=== PATIENT | male | born 1935 | race Caucasian/White ===

== ENCOUNTER 2022-04-04 13:30 | Inpatient (IN) | payer MEDICARE ==
[~2022-04-04] VITALS: Ht 177.8 cm; Wt 94.8 kg
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
[2022-04-04] MEDS ORDERED: METO50TA16 PO (13:57)
[2022-04-04] MEDS ORDERED: ESCI10TA PO (13:57)
[2022-04-04] MEDS ORDERED: BUME1TAB9 PO (13:57)
[2022-04-04] MEDS ORDERED: ATOR80TA PO (13:57)
[2022-04-04] MEDS ORDERED: TAMS-3 PO (13:57)
[2022-04-04] MEDS ORDERED: TRAZ-257 PO (13:57)
[2022-04-04 14:02] LABS: HEMATOCRIT 30.8 % (36.7-47.1); MEAN CORPUSCULAR HEMOGLOBIN 31.6 uug (23.8-33.4); MEAN CORPUSCULAR VOLUME 96.3 fL (73.0-96.2); PLATELET COUNT (AUTO) 69 K/uL (152-348)
[2022-04-04 14:08] LABS: CARBON DIOXIDE 33 mmol/L (21-32); CHLORIDE 101 mmol/L (98-107); CREATININE 1.7 mg/dL (0.6-1.3); GLUCOSE 147 mg/dL (74-106); UREA NITROGEN, BLOOD 29 mg/dL (7-18)
[2022-04-04 14:21] LABS: ALANINE AMINOTRANSFERASE 38 U/L (16-63); ALKALINE PHOSPHATASE 116 U/L (50-136); ASPARTATE AMINOTRANSFERASE 47 U/L (15-37); BILIRUBIN,DIRECT 0.6 mg/dL (0.0-0.2); BILIRUBIN,TOTAL 2.4 mg/dL (0.2-1.0); TOTAL PROTEIN, SERUM 7.2 g/dL (6.4-8.2)
[2022-04-04] MEDS ORDERED: POTASSIUM BICARBONATE/CIT AC 25 MEQ TABLET.EFF PO ONE (14:30)
[2022-04-04] MEDS ORDERED: POTASSIUM BICARBONATE/CIT AC 25 MEQ TABLET.EFF ONE (14:42)
[2022-04-04 14:48] LABS: LYMPHOCYTES % (MANUAL) 20 % (20-40); MONOCYTES % (MANUAL) 8 % (2-10); NEUTROPHILS % (MANUAL) 72 % (42-75)
--- NOTE | 2022-04-04 17:06 | NUR ---
ER Decision to admit patient for CHF exacerbation, Syncope, Hypokalemia and Bilateral Pleural Effusion. Pt initially preferred to be admitted to [facility]. [facility]/ contacted. Per transfer center they would have to secure their own MD acceptance and then will beprocessed based on bed availability. Pt's primary MD is Aldo Olivares [phone]. Pt's does not want to go through that process and agree to be admitted to this hospital instead and requesting that records be obtained from [facility]/primary MD notified for continuity of care. GIGAS paged for panel call. Waiting for [employer]IC[employer] to call.
[2022-04-04] MEDS ORDERED: BUMETANIDE 1 MG/4 ML VIAL IV ONE (17:45)
--- NOTE | 2022-04-04 17:50 | NUR ---
Accepted for admission by [employer] FIELD TECHNICIAN/3rd floor notified and bed 306 assigned.
[2022-04-04] MEDS ORDERED: BUMETANIDE 1 MG/4 ML VIAL ONE (18:38)
--- NOTE | 2022-04-04 18:43 | NUR ---
Called to give report at this time, per roadway engineer they will call back at shift change.
--- NOTE | 2022-04-04 18:55 | NUR ---
Receieved report from Raghu ROWE.
[2022-04-04] MEDS ORDERED: NITROGLYCERIN 0.4 MG/TAB BOTTLE SL PRN (19:00)
--- NOTE | 2022-04-04 20:03 | NUR ---
The patient has severe breathing difficulty. Requested to perform US Carotid Bilateral tomorrow. WILMAN Saleem agree.
--- NOTE | 2022-04-04 20:10 | NUR ---
Report given to Itzel ROWE.
[2022-04-04 20:55] VITALS: BP 134/70
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
--- NOTE | 2022-04-04 21:00 | NUR ---
Pt. admitted to TELE rm 306, under care of Dr. Saleem Belongs List completed Itzel RN aware of patients arrival.
[2022-04-04] MEDS ORDERED: ATOR40TA PO (21:05)
[2022-04-04] MEDS ORDERED: ESCI20TA44 PO (21:05)
[2022-04-04] MEDS ORDERED: BUMETANIDE INJ 4 MG in IV DEXTROSE 5% 24 ML IV ONE (21:30)
[2022-04-04] MEDS: TRAZODONE 100 MG TABLET PO SCH (22:10)
[2022-04-04] MEDS: ATORVASTATIN 40 MG TABLET PO SCH (22:10)
[2022-04-04] MEDS: TAMSULOSIN HCL 0.4 MG CAP.SR.24H PO SCH (22:10)
[2022-04-05] VITALS: BP 131/65
[2022-04-05 04:00] VITALS: BP 140/68
[2022-04-05 07:35] LABS: HEMATOCRIT 29.2 % (36.7-47.1); MEAN CORPUSCULAR HEMOGLOBIN 32.2 uug (23.8-33.4); MEAN CORPUSCULAR VOLUME 95.5 fL (73.0-96.2); PLATELET COUNT (AUTO) 67 K/uL (152-348)
[2022-04-05 08:37] LABS: ALANINE AMINOTRANSFERASE 42 U/L (16-63); ALKALINE PHOSPHATASE 110 U/L (50-136); ASPARTATE AMINOTRANSFERASE 36 U/L (15-37); BILIRUBIN,TOTAL 2.2 mg/dL (0.2-1.0); CARBON DIOXIDE 36 mmol/L (21-32); CHLORIDE 101 mmol/L (98-107); CREATININE 1.5 mg/dL (0.6-1.3); GLUCOSE 103 mg/dL (74-106); MAGNESIUM 1.9 mg/dL (1.8-2.4); PHOSPHOROUS 3.8 mg/dL (2.5-4.9); POTASSIUM 3.2 mmol/L (3.5-5.1); TOTAL PROTEIN, SERUM 7.3 g/dL (6.4-8.2); UREA NITROGEN, BLOOD 28 mg/dL (7-18)
[2022-04-05] MEDS: METOPROLOL TARTRATE 50 MG TABLET PO SCH ×2 (08:50→17:38)
[2022-04-05] MEDS ORDERED: Medication Not On Formulary EA (Atorvastatin Calcium (Lipitor) 1 TAB) PO SCH (09:00)
[2022-04-05] MEDS ORDERED: BUMETANIDE 1 MG TABLET PO SCH (09:00)
[2022-04-05] MEDS ORDERED: ESCITALOPRAM OXALATE 10 MG TABLET PO SCH ×2 (09:00)
[2022-04-05] MEDS ORDERED: POTASSIUM CHLORIDE 10 MEQ TAB.PRT.SR PO ONE (09:15)
[2022-04-05] MEDS ORDERED: BUMETANIDE 1 MG/4 ML VIAL IV ONE (09:15)
[2022-04-05 09:16] LABS: BAND % (MANUAL) 1 % (0-10); EOSINOPHILS % (MANUAL) 3 % (0-8); LYMPHOCYTES % (MANUAL) 13 % (20-40); MONOCYTES % (MANUAL) 9 % (2-10); NEUTROPHILS % (MANUAL) 74 % (42-75)
[2022-04-05 12:14] VITALS: BP 109/59
[2022-04-05] MEDS: POTASSIUM CHLORIDE 50 ML IV SCH ×2 (15:05→16:15)
[2022-04-05 16:33] VITALS: BP 117/59
[2022-04-05] MEDS: BUMETANIDE 1 MG/4 ML VIAL IV SCH (17:37)
[2022-04-05 20:00] VITALS: BP 126/66
[2022-04-05] MEDS ORDERED: AZITHROMYCIN 250 MG TABLET PO SCH (21:30)
[2022-04-05] MEDS: ATORVASTATIN 40 MG TABLET PO SCH (22:01)
[2022-04-05] MEDS: TAMSULOSIN HCL 0.4 MG CAP.SR.24H PO SCH (22:01)
[2022-04-05] MEDS: TRAZODONE 100 MG TABLET PO SCH (22:02)
[2022-04-06 00:17] VITALS: BP 136/66
[2022-04-06 06:50] LABS: HEMATOCRIT 26.7 % (36.7-47.1); MEAN CORPUSCULAR HEMOGLOBIN 32.3 uug (23.8-33.4); MEAN CORPUSCULAR VOLUME 94.7 fL (73.0-96.2); PLATELET COUNT (AUTO) 63 K/uL (152-348)
[2022-04-06 07:31] LABS: CARBON DIOXIDE 36 mmol/L (21-32); CHLORIDE 100 mmol/L (98-107); CREATININE 1.7 mg/dL (0.6-1.3); GLUCOSE 101 mg/dL (74-106); MAGNESIUM 1.8 mg/dL (1.8-2.4); PHOSPHOROUS 4.1 mg/dL (2.5-4.9); UREA NITROGEN, BLOOD 30 mg/dL (7-18)
[2022-04-06] MEDS ORDERED: POTASSIUM CHLORIDE 20 MEQ POWDER PACKET GT ONE (07:45)
[2022-04-06] MEDS ORDERED: POTASSIUM CHLORIDE 20 MEQ TAB.PRT.SR PO ONE (07:45)
[2022-04-06] MEDS ORDERED: MAGNESIUM SULFATE/D5W 100 ML IV SCH (07:45)
[2022-04-06] MEDS: BUMETANIDE 1 MG/4 ML VIAL IV SCH ×2 (08:39→17:23)
[2022-04-06] MEDS: POTASSIUM CHLORIDE 50 ML IV SCH ×2 (08:39→09:12)
[2022-04-06] MEDS: ASPIRIN 81 MG TAB.CHEW PO SCH (08:40)
[2022-04-06] MEDS: METOPROLOL TARTRATE 50 MG TABLET PO SCH ×2 (08:40→20:40)
--- NOTE | 2022-04-06 08:41 | NUR ---
SHIFT NOTES: PT IS ALERT AND ORIENTED X4 C/O BED HAS INDENTATION IN IT HE WILL NOT SLEEP IN ENDORSED ON DAYS IT WASN'T TAKEN CARE OF. UM RN VIRA FOUND PT A BED AND HE SAID THAT ONE IS BETTER NO SIGNS OF RESPIRATORY DISTRESS NOTED. PT DENIES PAIN MEDICATION GIVEN ORDERED NO SIGNS OF ADVERSE REACTION NOTED WILL CONTINUE TO MONITOR FOR FALL AND SAFETY.
[2022-04-06 11:57] VITALS: BP 102/50
[2022-04-06 16:00] VITALS: BP 108/62
[2022-04-06 20:02] VITALS: BP 138/70
[2022-04-06] MEDS: TRAZODONE 100 MG TABLET PO SCH (20:38)
[2022-04-06] MEDS: ATORVASTATIN 40 MG TABLET PO SCH (20:38)
[2022-04-06] MEDS: TAMSULOSIN HCL 0.4 MG CAP.SR.24H PO SCH (20:38)
[2022-04-07] VITALS: BP 103/51
[2022-04-07 04:21] VITALS: BP 117/67
[2022-04-07 06:44] LABS: CARBON DIOXIDE 37 mmol/L (21-32); CHLORIDE 98 mmol/L (98-107); CREATININE 1.9 mg/dL (0.6-1.3); GLUCOSE 116 mg/dL (74-106); POTASSIUM 3.1 mmol/L (3.5-5.1); UREA NITROGEN, BLOOD 34 mg/dL (7-18)
[2022-04-07 07:02] LABS: HEMATOCRIT 28.6 % (36.7-47.1); MEAN CORPUSCULAR HEMOGLOBIN 32.3 uug (23.8-33.4); MEAN CORPUSCULAR VOLUME 94.5 fL (73.0-96.2); PLATELET COUNT (AUTO) 58 K/uL (152-348)
[2022-04-07] MEDS: BUMETANIDE 1 MG/4 ML VIAL IV SCH (08:35)
[2022-04-07] MEDS: ASPIRIN 81 MG TAB.CHEW PO SCH (08:35)
[2022-04-07] MEDS: METOPROLOL TARTRATE 50 MG TABLET PO SCH ×2 (08:42→20:49)
[2022-04-07] MEDS ORDERED: POTASSIUM CHLORIDE 50 ML IV SCH (10:00)
[2022-04-07 11:40] VITALS: BP 107/58
[2022-04-07] MEDS ORDERED: POTASSIUM CHLORIDE 20 MEQ POWDER PACKET PO ONE (12:00)
--- NOTE | 2022-04-07 15:57 | NUR ---
md diaz called for kidney consult while pt is on bumex for chf
[2022-04-07 16:05] VITALS: BP 122/59
--- NOTE | 2022-04-07 20:00 | NUR ---
received pt with no IV; pt refused iv reinsertion at this time; aware; call light within reach; able to make needs known.
[2022-04-07] MEDS: TRAZODONE 100 MG TABLET PO SCH (20:46)
[2022-04-07] MEDS: TAMSULOSIN HCL 0.4 MG CAP.SR.24H PO SCH (20:46)
[2022-04-07] MEDS: ATORVASTATIN 40 MG TABLET PO SCH (20:46)
--- NOTE | 2022-04-08 06:06 | NUR ---
pt slept well in between care; no acute distress; needs attended; pt refusing IV reinsertion;
[2022-04-08 07:02] LABS: HEMATOCRIT 26.5 % (36.7-47.1); MEAN CORPUSCULAR HEMOGLOBIN 32.2 uug (23.8-33.4); MEAN CORPUSCULAR VOLUME 94.7 fL (73.0-96.2); PLATELET COUNT (AUTO) 51 K/uL (152-348)
[2022-04-08 07:16] LABS: CHLORIDE 96 mmol/L (98-107); CREATININE 1.8 mg/dL (0.6-1.3); GLUCOSE 103 mg/dL (74-106); MAGNESIUM 1.9 mg/dL (1.8-2.4); PHOSPHOROUS 3.5 mg/dL (2.5-4.9); POTASSIUM 3.2 mmol/L (3.5-5.1); UREA NITROGEN, BLOOD 35 mg/dL (7-18)
[2022-04-08 07:51] LABS: CARBON DIOXIDE 40 mmol/L (21-32)
[2022-04-08] MEDS: METOPROLOL TARTRATE 50 MG TABLET PO SCH ×2 (08:35→22:09)
[2022-04-08] MEDS: ASPIRIN 81 MG TAB.CHEW PO SCH (08:35)
[2022-04-08] MEDS ORDERED: BUMETANIDE 1 MG/4 ML VIAL IV SCH (09:00)
[2022-04-08] MEDS ORDERED: POTASSIUM CHLORIDE 20 MEQ TAB.PRT.SR PO ONE (09:15)
[2022-04-08 11:31] VITALS: BP 107/52
[2022-04-08 16:54] VITALS: BP 117/76
--- NOTE | 2022-04-08 19:45 | NUR ---
ROUNDS MADE PATIENT OOB SITTING IN THE CHAIR .TOLERATING 02 NASAL CANNULA AT 4 L/MIN . PATIENTS AT B/S UPDATED WITH PATIENT CONDITION PER PATIENT IS FOR POSSIBLE D/C IN AM .
[2022-04-08 20:00] VITALS: BP 147/45
[2022-04-08] MEDS ORDERED: ACETAzolamide 250 MG TABLET PO SCH (21:00)
[2022-04-08] MEDS: ATORVASTATIN 40 MG TABLET PO SCH (22:09)
[2022-04-08] MEDS: TAMSULOSIN HCL 0.4 MG CAP.SR.24H PO SCH (22:09)
[2022-04-08] MEDS: TRAZODONE 100 MG TABLET PO SCH (22:09)
[2022-04-09 04:00] VITALS: BP 124/58
[2022-04-09 07:04] LABS: CARBON DIOXIDE 34 mmol/L (21-32); CHLORIDE 98 mmol/L (98-107); CREATININE 1.6 mg/dL (0.6-1.3); GLUCOSE 116 mg/dL (74-106); MAGNESIUM 2.2 mg/dL (1.8-2.4); POTASSIUM 2.9 mmol/L (3.5-5.1); UREA NITROGEN, BLOOD 34 mg/dL (7-18)
[2022-04-09 07:20] LABS: HEMATOCRIT 27.4 % (36.7-47.1); MEAN CORPUSCULAR HEMOGLOBIN 32.4 uug (23.8-33.4); MEAN CORPUSCULAR VOLUME 96.1 fL (73.0-96.2); PLATELET COUNT (AUTO) 52 K/uL (152-348)
[2022-04-09] MEDS: METOPROLOL TARTRATE 50 MG TABLET PO SCH ×2 (08:40→20:49)
[2022-04-09] MEDS ORDERED: POTASSIUM CHLORIDE 20 MEQ TAB.PRT.SR PO ONE ×2 (08:45→16:00)
[2022-04-09] MEDS ORDERED: BUMETANIDE 1 MG TABLET PO SCH (09:00)
--- NOTE | 2022-04-09 09:20 | NUR ---
PATIENT SEEN AND EXAMINED BY DR HERNANDEZ WITH POTASSIUM LEVEL IS 2.9 WITH NEW ORDERS AND NOTED.
--- NOTE | 2022-04-09 09:58 | NUR ---
PATIENT IS A HARD STICK MULTIPLE ATTEMPTS DOES NOT HAVE AN IV SITE AND HAS IV POTASSIUM ORDERED WITH ORDER FOR MIDLINE AND NOTED TROLLEY CLEANER NOTIFIED TO CALL [facility] MID LINE NURSE.
[2022-04-09] MEDS ORDERED: METOLAZONE 2.5 MG TABLET PO ONE (10:00)
[2022-04-09 10:55] LABS: BAND % (MANUAL) 2 % (0-10); LYMPHOCYTES % (MANUAL) 16 % (20-40); MONOCYTES % (MANUAL) 7 % (2-10); NEUTROPHILS % (MANUAL) 75 % (42-75)
--- NOTE | 2022-04-09 11:23 | NUR ---
AWAITING FOR THE MIDLINE RN TO INSERT A LINE IN ORDER FOR THE POTASSIUM TO BE INFUSED ORDERED.
[2022-04-09] MEDS: GLUCERNA SHAKE 237 ML CAN PO SCH ×2 (11:30→17:37)
[2022-04-09 11:58] VITALS: BP 115/61
[2022-04-09 16:38] VITALS: BP 108/60
[2022-04-09] MEDS ORDERED: BUMETANIDE 1 MG/4 ML VIAL IV SCH (17:00)
[2022-04-09] MEDS: POTASSIUM CHLORIDE 10 MEQ, LIDOCAINE-MPF 1% 1 ML in IV DEXTROSE 5% 100 ML IV SCH ×2 (17:37→18:50)
--- NOTE | 2022-04-09 17:38 | NUR ---
MID LINE INSERTED RIGHT UPPER ARM AND KCL IV STARTED AT THIS TIME ORDERED.
[2022-04-09 20:00] VITALS: BP 121/58
--- NOTE | 2022-04-09 20:00 | NUR ---
rounds made patient oob sitting in the chair .alert ,awake and coherent . on 02 nasal cannula at 4 l/min tolerating 02 saturation 99% breathing even and unlabored. void using he urinal and at times notes to go to bathroom . patient ambulatory steady of gait .
[2022-04-09] MEDS: TAMSULOSIN HCL 0.4 MG CAP.SR.24H PO SCH (20:48)
[2022-04-09] MEDS: TRAZODONE 100 MG TABLET PO SCH (20:48)
--- NOTE | 2022-04-09 20:49 | NUR ---
tolerated po medication with water .
[2022-04-09] MEDS: ATORVASTATIN 40 MG TABLET PO SCH (20:52)
--- NOTE | 2022-04-09 21:15 | NUR ---
patient ambulated self to the bathroom voided, sob noted upon exertion .escorted back to the chair and 02 placed .
--- NOTE | 2022-04-09 22:15 | NUR ---
patient called and verbalized he wants to sleep now and he needs help to go to bed . assisted patient to bed and warn blanket provided . call light placed with in reach and advised to call for help and to used the call light .
[2022-04-10] VITALS: BP 110/65
[2022-04-10 04:00] VITALS: BP 125/53
--- NOTE | 2022-04-10 07:15 | NUR ---
PATIENT SEEN AND EXAMINE BY DR HERNANDEZ CARDIOLOGY WITH NEW ORDERS AND NOTED.
[2022-04-10 07:24] LABS: HEMATOCRIT 26.3 % (36.7-47.1); MEAN CORPUSCULAR HEMOGLOBIN 32.4 uug (23.8-33.4); PLATELET COUNT (AUTO) 52 K/uL (152-348)
--- NOTE | 2022-04-10 07:41 | NUR ---
POTASSIUM LEVEL TODAY IS 3.5 ORDER FOR 40 MEQ POTASSIUM RECEIVED FROM DR HERNANDEZ AND NOTED.
[2022-04-10 07:44] LABS: CARBON DIOXIDE 36 mmol/L (21-32); CHLORIDE 98 mmol/L (98-107); CREATININE 1.8 mg/dL (0.6-1.3); GLUCOSE 137 mg/dL (74-106); MAGNESIUM 2.3 mg/dL (1.8-2.4); PHOSPHOROUS 3.7 mg/dL (2.5-4.9); POTASSIUM 3.5 mmol/L (3.5-5.1); UREA NITROGEN, BLOOD 36 mg/dL (7-18)
[2022-04-10] MEDS: BUMETANIDE 1 MG/4 ML VIAL IV SCH ×3 (08:35→16:41)
[2022-04-10] MEDS: METOPROLOL TARTRATE 50 MG TABLET PO SCH ×2 (08:36→21:07)
[2022-04-10] MEDS: GLUCERNA SHAKE 237 ML CAN PO SCH ×2 (08:51→17:09)
[2022-04-10] MEDS ORDERED: ASPIRIN 81 MG TAB.CHEW PO SCH (09:00)
[2022-04-10] MEDS ORDERED: METOLAZONE 2.5 MG TABLET PO ONE (09:00)
[2022-04-10] MEDS ORDERED: ACETAzolamide 250 MG TABLET PO ONE (09:00)
[2022-04-10] MEDS ORDERED: ESCITALOPRAM OXALATE 10 MG TABLET PO SCH (09:00)
[2022-04-10] MEDS ORDERED: POTASSIUM CHLORIDE 20 MEQ TAB.PRT.SR PO ONE (09:00)
[2022-04-10 11:43] VITALS: BP 114/66
[2022-04-10 14:03] LABS: EOSINOPHILS % (MANUAL) 1 % (0-8); LYMPHOCYTES % (MANUAL) 17 % (20-40); MONOCYTES % (MANUAL) 10 % (2-10); NEUTROPHILS % (MANUAL) 72 % (42-75)
[2022-04-10 16:00] VITALS: BP 111/58
--- NOTE | 2022-04-10 17:37 | NUR ---
PATIENT IS DIURESING WELL USING THE URINAL AT TIMES AND ALSO ABLE TO AMBULATE TO THE BATHROOM NEEDED.DENIES DISCOMFORTS REMAIN ON O2 WITH NO SOB AT THIS TIME WILL CONTINUE TO OBSERVE.
--- NOTE | 2022-04-10 20:00 | NUR ---
RECEIVED PATIENT IN ROOM SITTING UP ON THE CHAIR WITH FAMILY AT HIS BEDSIDE VISITING DENIES DISCOMFORTS O2 IN PROGRESS WITH NO SHORTNESS OF BREATH MADE COMFORTABLE NOT IN DISTRESS WILL CONTINUE TO OBSERVE.
[2022-04-10 20:48] VITALS: BP 118/55
[2022-04-10] MEDS: ATORVASTATIN 40 MG TABLET PO SCH (21:07)
[2022-04-10] MEDS: TAMSULOSIN HCL 0.4 MG CAP.SR.24H PO SCH (21:08)
[2022-04-10] MEDS: TRAZODONE 100 MG TABLET PO SCH (21:14)
--- NOTE | 2022-04-10 21:30 | NUR ---
AWAKE ALERT AND ORIENTED SITTING UP ON THE CHAIR IN HIS ROOM WITH O2 IN PROGRESS AT 4L/M BY NASAL CANULA WITH NO SOB AT THIS TIME HE IS USING URINAL AT TIMES TO VOID CLEAR YELLOW URINE DENIES PAIN OR DISCOMFORTS NOT IN DISTRESS AT THIS TIME CALL LIGHTS AND HIS PERSONAL BELONGINGS ARE WITHIN EASY REACH MADE COMFORTABLE WILL CONTINUE TO OBSERVE.
[2022-04-11 00:25] VITALS: BP 108/43
[2022-04-11 04:16] VITALS: BP 111/54
[2022-04-11 06:25] LABS: CARBON DIOXIDE 38 mmol/L (21-32); CHLORIDE 95 mmol/L (98-107); CREATININE 1.9 mg/dL (0.6-1.3); GLUCOSE 101 mg/dL (74-106); MAGNESIUM 2.3 mg/dL (1.8-2.4); PHOSPHOROUS 4.2 mg/dL (2.5-4.9); UREA NITROGEN, BLOOD 42 mg/dL (7-18)
--- NOTE | 2022-04-11 06:25 | NUR ---
ASLEEP IN BED EASILY AROUSABLE WITH O2 AT 4L/M BY NASAL CANULA WITH NO SHORTNESS OF BREATH AT THIS TIME.VOIDING WELL DENIES DISCOMFORTS CALL LIGHTS AND HIS PERSONAL BELONGINGS ARE WITHIN EASY REACH WILL CONTINUE TO OBSERVE.
[2022-04-11 06:26] LABS: HEMATOCRIT 27.3 % (36.7-47.1); MEAN CORPUSCULAR HEMOGLOBIN 32.5 uug (23.8-33.4); PLATELET COUNT (AUTO) 52 K/uL (152-348)
[2022-04-11 06:32] LABS: POTASSIUM 2.9 mmol/L (3.5-5.1)
[2022-04-11 07:55] LABS: EOSINOPHILS % (MANUAL) 1 % (0-8); LYMPHOCYTES % (MANUAL) 20 % (20-40); MONOCYTES % (MANUAL) 11 % (2-10); NEUTROPHILS % (MANUAL) 68 % (42-75)
[2022-04-11 08:20] VITALS: BP 115/40
[2022-04-11] MEDS ORDERED: POTASSIUM CHLORIDE 20 MEQ TAB.PRT.SR PO ONE (08:45)
[2022-04-11] MEDS ORDERED: ACETAzolamide 250 MG TABLET PO ONE (08:45)
[2022-04-11] MEDS: METOPROLOL TARTRATE 50 MG TABLET PO SCH ×2 (08:58→20:22)
[2022-04-11] MEDS: BUMETANIDE 1 MG/4 ML VIAL IV SCH ×3 (08:58→16:39)
[2022-04-11] MEDS: GLUCERNA SHAKE 237 ML CAN PO SCH ×2 (08:58→16:39)
[2022-04-11] MEDS ORDERED: POTASSIUM CHLORIDE 20 MEQ POWDER PACKET PO ONE (09:00)
--- NOTE | 2022-04-11 10:06 | NUR ---
Pt is a/o x 4, no complaint of chest pain, dizziness or SOB. Pt sitting at edge of the bed at this time. Checked saturation on room air, ranges between 92-95%. 99% on 4L nasal cannula. Pt states he has oxygen at hoe for when he does activities and during sleep but unsure of how much oxygen he uses. Comfort measures provided, call light within reach, will continue to monitor.
[2022-04-11 11:47] VITALS: BP 148/63
[2022-04-11] MEDS: POTASSIUM CHLORIDE 10 MEQ, LIDOCAINE-MPF 1% 1 ML in IV DEXTROSE 5% 100 ML IV SCH ×2 (12:07→13:17)
--- NOTE | 2022-04-11 15:14 | NUR ---
Pt complained of dryness in nose, stated he had a nose bleed. After assessing pt, there is no active bleeding, small amount of blood noted after blowing nose. Pt is on humidified oxygen and provided saline flush to clean out. Pt was comfortable and stated that the flush will be fine. Daughter at bedside. Comfort measures provided, call light within reach. MD notified.
[2022-04-11 16:00] VITALS: BP 121/68
[2022-04-11 20:00] VITALS: BP 104/53
[2022-04-11] MEDS: ATORVASTATIN 40 MG TABLET PO SCH (20:22)
[2022-04-11] MEDS: TAMSULOSIN HCL 0.4 MG CAP.SR.24H PO SCH (20:22)
[2022-04-11] MEDS: TRAZODONE 100 MG TABLET PO SCH (20:22)
[2022-04-12] VITALS: BP 103/31
[2022-04-12 04:00] VITALS: BP 109/42
[2022-04-12 07:09] LABS: HEMATOCRIT 24.9 % (36.7-47.1); MEAN CORPUSCULAR HEMOGLOBIN 32.4 uug (23.8-33.4); MEAN CORPUSCULAR VOLUME 93.7 fL (73.0-96.2); PLATELET COUNT (AUTO) 60 K/uL (152-348)
[2022-04-12 07:20] LABS: CARBON DIOXIDE 38 mmol/L (21-32); CHLORIDE 92 mmol/L (98-107); CREATININE 1.9 mg/dL (0.6-1.3); GLUCOSE 96 mg/dL (74-106); MAGNESIUM 2.3 mg/dL (1.8-2.4); PHOSPHOROUS 5.3 mg/dL (2.5-4.9); UREA NITROGEN, BLOOD 45 mg/dL (7-18)
[2022-04-12 07:34] LABS: POTASSIUM 2.7 mmol/L (3.5-5.1)
--- NOTE | 2022-04-12 07:38 | NUR ---
Sleeping, appears comfortable. O2 at 4L/NC.
[2022-04-12] MEDS ORDERED: POTASSIUM CHLORIDE 20 MEQ POWDER PACKET PO ONE (08:15)
[2022-04-12] MEDS ORDERED: POTASSIUM CHLORIDE 20 MEQ TAB.PRT.SR PO ONE ×2 (08:15→12:00)
[2022-04-12] MEDS ORDERED: SPIRONOLACTONE 25 MG TABLET PO SCH (09:00)
[2022-04-12] MEDS ORDERED: BUMETANIDE 1 MG TABLET PO SCH (09:00)
[2022-04-12] MEDS: POTASSIUM CHLORIDE 10 MEQ, LIDOCAINE-MPF 1% 1 ML in IV DEXTROSE 5% 100 ML IV SCH ×4 (09:03→12:15)
[2022-04-12] MEDS: METOPROLOL TARTRATE 50 MG TABLET PO SCH (09:48)
[2022-04-12] MEDS: GLUCERNA SHAKE 237 ML CAN PO SCH (09:49)
[2022-04-12 10:33] LABS: EOSINOPHILS % (MANUAL) 3 % (0-8); LYMPHOCYTES % (MANUAL) 19 % (20-40); MONOCYTES % (MANUAL) 5 % (2-10); NEUTROPHILS % (MANUAL) 73 % (42-75)
[2022-04-12 11:00] VITALS: BP 105/49
[2022-04-12] MEDS ORDERED: MAGN400T26 PO (12:28)
[2022-04-12] MEDS ORDERED: BUME1TAB8 PO (12:28)
[2022-04-12] MEDS ORDERED: SPIR25TA PO (12:28)
[2022-04-12] MEDS ORDERED: POTA-194 PO (12:28)
[2022-04-12] MEDS ORDERED: METO50TA16 PO (12:28)
--- NOTE | 2022-04-12 13:30 | NUR ---
KCL 40 MEQ IV given as ordered
[2022-04-12 14:48] LABS: CARBON DIOXIDE 36 mmol/L (21-32); CHLORIDE 93 mmol/L (98-107); CREATININE 1.9 mg/dL (0.6-1.3); GLUCOSE 136 mg/dL (74-106); POTASSIUM 3.1 mmol/L (3.5-5.1); UREA NITROGEN, BLOOD 46 mg/dL (7-18)
[2022-04-12] MEDS ORDERED: INFLUENZA VACCINE 2022-2023 0.5 ML DISP.SYRIN IM ONE (15:45)
[2022-04-12 16:00] VITALS: BP 107/46
--- NOTE | 2022-04-12 16:55 | NUR ---
Repeat K done; With discharge order to home; Saline lock removed. Tele removed. Prescription and DC instruction given to patient and , verbalized understanding. Went home per wheelchair in fair condition, with O2, not in distress, afebrile.
== END 2022-04-12 17:00 | disposition home health service (06) | DRG 291 ==
LOC: ER 13:30 → TELE3 20:31
PROVIDERS: ADMIT Registered Nurse; ATTEND Nurse Practitioner Acute Care
PROC: 05H533Z Insertion of Infusion Device into Right Subclavian Vein, Percutaneous Approach (ICD-10-PCS; principal; 2022-04-09)
PROC: B546ZZA Ultrasonography of Right Subclavian Vein, Guidance (ICD-10-PCS; 2022-04-09)
DX: I13.0 Hypertensive heart and chronic kidney disease with heart failure and stage 1 through stage 4 chronic kidney disease, or unspecified chronic kidney disease (principal); I50.33 Acute on chronic diastolic (congestive) heart failure; J96.21 Acute and chronic respiratory failure with hypoxia; J96.22 Acute and chronic respiratory failure with hypercapnia; N17.0 Acute kidney failure with tubular necrosis; I48.20 Chronic atrial fibrillation, unspecified; R55 Syncope and collapse; I65.22 Occlusion and stenosis of left carotid artery; E66.01 Morbid (severe) obesity due to excess calories; E78.5 Hyperlipidemia, unspecified; E83.42 Hypomagnesemia; E87.6 Hypokalemia; E88.09 Other disorders of plasma-protein metabolism, not elsewhere classified; I25.10 Atherosclerotic heart disease of native coronary artery without angina pectoris; I34.0 Nonrheumatic mitral (valve) insufficiency; N40.0 Benign prostatic hyperplasia without lower urinary tract symptoms; Z95.1 Presence of aortocoronary bypass graft; Z95.2 Presence of prosthetic heart valve; Z99.81 Dependence on supplemental oxygen; Z68.30 Body mass index [BMI] 30.0-30.9, adult; D50.9 Iron deficiency anemia, unspecified; J44.9 Chronic obstructive pulmonary disease, unspecified; N18.9 Chronic kidney disease, unspecified
CPT/HCPCS: 36415; 70030-TC; 71045; 76705; 76770; 83735; 84100; 84443; 84484; 85025; 85730; 90686; 93005; 93307; 93880; A4663; G0378; J2001; J3475; J3480; J3490; J8499